=== PATIENT | male | born 2000 | race Caucasian/White ===

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

== ENCOUNTER → 2024-11-11 | Outpatient (CLI) | payer BC ==
[2024-11-11 16:37] LABS: BASOPHILS ABSOLUTE AUTO 0.08 K/mm3 (0.00-0.23); BASOPHILS PERCENT AUTO 1 % (0-2); EOSINOPHILS ABSOLUTE AUTO 0.17 K/mm3 (0.00-0.68); EOSINOPHILS PERCENT AUTO 2 % (0-6); Hematocrit 37.3 % (37.0-53.0); Hemoglobin 13.5 g/dL (13.5-17.5); IMMATURE GRAN ABSOLUTE AUTO 0.03 K/mm3 (0.00-0.10); IMMATURE GRAN PERCENT AUTO 0 % (0-1); LYMPHOCYTES ABSOLUTE AUTO 1.29 K/mm3 (0.84-5.20); LYMPHOCYTES PERCENT AUTO 13 % (21-46); MONOCYTES PERCENT AUTO 7 % (4-13); Mean Corpuscular HGB 30.4 pg (26.0-34.0); Mean Corpuscular HGB Conc 36.2 g/dL (31.5-36.5); Mean Corpuscular Volume 84 fL (80-100); Mean Platelet Volume 10.4 fL (9.1-12.4); NEUTROPHILS ABSOLUTE AUTO 8.01 K/mm3 (1.96-9.15); NEUTROPHILS PERCENT AUTO 78 % (41-73); Platelet Count 313 K/mm3 (150-400); RDW Coefficient Variation 11.9 % (11.7-14.2); RDW Standard Deviation 36.1 fL (35.1-46.3); Red Blood Cell Count 4.44 M/mm3 (4.30-5.90); White Blood Cell Count 10.28 K/mm3 (4.00-11.30)
[2024-11-11 19:18] LABS: Albumin, Blood 4.2 g/dL (3.4-5.0); Alk Phos 74 U/L (50-136); Anion Gap 9 mmol/L (3-11); Bilirubin, Total 0.5 mg/dL (0.1-1.0); Blood Urea Nitrogen 14 mg/dL (8-24); CHOL/HDL RATIO 3.4; CO2, Blood 30 mmol/L (21-32); Calcium, Blood 8.8 mg/dL (8.5-10.1); Chloride, Blood 103 mmol/L (98-108); Cholesterol 165 mg/dL (50-200); Free Thyroxine 0.88 ng/dL (0.70-1.60); Glucose, Blood 83 mg/dL (70-99); HDL Cholesterol 49 mg/dL (>39); LDL/HDL RATIO 1.4; Low Density Lipoprotein Chol 67 mg/dL (0-110); Potassium, Blood 3.8 mmol/L (3.5-5.5); Sodium, Blood 138 mmol/L (136-145); Triglycerides 246 mg/dL (30-140); Very Low Density Lipoprot Chol 49 mg/dL (6-28)
[2024-11-11 19:25] LABS: Thyroid Stimulating Hormone 0.665 uIU/mL (0.360-4.800)
[2024-11-11 19:26] LABS: Alanine Aminotransfer (ALT/SGP 19 U/L (12-78); Albumin/Globulin Ratio 1.2 (0.8-1.8); Aspartate Aminotrans (AST/SGOT 14 U/L (12-37); Bun/Creatinine Ratio 11.2 (12.0-20.0); Creatinine, Blood 1.25 mg/dL (0.60-1.20); Globulin, Blood 3.5 g/dL (2.2-4.0); Glomerular Filtration Rate 82 (60-); Total Protein, Blood 7.7 g/dL (6.4-8.2)
[2024-11-15 22:28] LABS: TESTOSTERONE, FREE BY DIALYSIS 39.8 pg/mL (47.0-244.0); TESTOSTERONE, TOTAL MASS SPEC 244.4 ng/dL (300.0-1080.0)
== END ==
LOC: LAB SHORT 15:15 → LAB 15:15
PROVIDERS: Family Medicine
DX: Z00.00 Encounter for general adult medical examination without abnormal findings (principal); R53.83 Other fatigue
CPT/HCPCS: 80053; 80061; 84402; 84403; 84439; 84443; 85025

== ENCOUNTER → 2025-03-03 | Outpatient (CLI) | payer BC ==
[2025-03-10 05:15] LABS: TESTOSTERONE, FREE BY DIALYSIS 61.6 pg/mL (47.0-244.0); TESTOSTERONE, TOTAL MASS SPEC 397.5 ng/dL (300.0-1080.0)
== END ==
LOC: LAB 18:15 → LAB SHORT 18:15
PROVIDERS: Family Medicine
DX: E29.1 Testicular hypofunction (principal)
CPT/HCPCS: 84402; 84403